=== PATIENT | female | born 1975 | race Caucasian/White ===

== ENCOUNTER 2016-09-10 09:43 | Emergency (ER) | payer MEDICAID ==
[~2016-09-10] VITALS: Wt 118.0 kg
[~2016-09-10 09:43] MED LIST: ACET500T98 PO; IBUP400T22 PO; LORA1TAB PO
[2016-09-10] MEDS ORDERED: LORAZEPAM 1 MG TAB PO ONE (11:30)
--- NOTE | 2016-09-10 11:31 | ERD ---
ER Documentation Chief Complaint Date/Time DATE: 09/10/16 TIME: 11:27 Chief Complaint MILD SOB WITH NO COUGH. FELT HR FAST LST NIGHT. TODAY NORMAL HR. NO CP HPI This patient is a 41-year-old female with history of anxiety presenting to the emergency department for palpitations which have been ongoing intermittently since last night. She normally takes Ativan for anxiety which also relieves her palpitations, but currently ran out of her prescription. She denies any dizziness, syncope, chest pain, shortness of breath, arm pain, jaw pain, diaphoresis, or other symptoms at this time. ROS All systems reviewed and are negative except as per history of present illness. Medications Home Meds Active Scripts Lorazepam* (Lorazepam*) 1 Mg Tablet, 1 MG PO Q8 Y for AGITATION/ANXIETY, #20 TAB Prov:MADELAINE COHN 03/15/16 Ibuprofen* (Motrin*) 400 Mg Tab, 400 MG PO Q6, #30 TAB 0 Refills Prov:ERICH ZABALA PA-C 11/10/15 Acetaminophen (Tylenol) 500 Mg Tab, 500 MG PO Q6, #30 TAB 0 Refills Prov:ERICH ZABALA PA-C 11/10/15 Allergies Allergies: Coded Allergies: No Known Allergy (Verified , 03/14/16) PMhx/Soc History of Surgery: Yes (C SECTION X4 ) Anesthesia Reaction: No Hx Neurological Disorder: No Hx Respiratory Disorders: No Hx Cardiac Disorders: No Hx Psychiatric Problems: No Hx Miscellaneous Medical Probl: No Hx Alcohol Use: No Hx Substance Use: No Hx Tobacco Use: No Smoking Status: Never smoker FmHx Noncontributory for chief complaint Physical Exam Vitals Vital Signs Date Time Temp Pulse Resp B/P Pulse Ox O2 Delivery O2 Flow Rate FiO2 09/10/16 09:50 98.8 72 20 137/67 99 Physical Exam INITIAL VITAL SIGNS: Reviewed by me. GENERAL: Alert and interactive. No acute distress. HEAD: Head is normocephalic and atraumatic. EYES: EOMI. No scleral icterus. No conjunctival injection. ENT: Moist mucosa. NECK: Supple. Full range of motion. RESPIRATORY: Normal respiratory effort. Clear breath sounds bilaterally. No wheezing, rales, or rhonchi. CV: Regular rate and rhythm. Normal S1 S2. No S3 or S4. No murmurs. ABDOMEN: Soft, non-distended, non-tender. No guarding. No rebound. No masses. EXTREMITIES: No deformity. SKIN: Warm and dry. NEUROLOGIC: Alert and oriented x 4. Speech is normal. Moves all extremities equally. No motor or sensory deficits noted. Results 24 hrs Current Medications Medications (Trade) Dose Ordered Sig/Kiki Route PRN Reason Start Time Stop Time Status Last Admin Dose Admin Lorazepam (Ativan) 1 mg ONCE ONCE PO 09/10/16 11:30 09/10/16 11:31 DC Procedures/MDM 41-year-old female presents secondary to complaints of heart palpitations and feeling slightly anxious. On physical examination the patient's vitals are within normal limits. Patient is 99% on room air. Patient's pulse is 72 bpm. Blood pressure is 137/67. I believe the patient's patient's symptoms are related to her history of anxiety. I have ordered an EKG looking for any signs of acute ischemia or other abnormalities. EKG: Interpreted by ED physician Rate/Rhythm: Normal sinus rhythm with rate of [address] bpm. QRS, ST, T-waves: No changes consistent w/ acute ischemia Impression: No evidence of ischemia or arrhythmia The patient's thoracic symptoms have resolved in the department. She was feeling much improved after 1 mg p.o. Ativan. Patient is stable for discharge. Patient was advised to return to the department immediately if she has any new or worsening symptoms. The patient will be given a prescription for Ativan which she may take at home only as needed for acute anxiety symptoms. Patient understands the diagnosis and plan and her questions and concerns of been addressed. Departure Diagnosis: Primary Impression: Anxiety reaction Condition: Stable Additional Instructions: Follow-up with your primary care physician within 1 week. Return to the emergency department immediately should you have any new or worsening symptoms, uncontrolled fevers, or other unexplained symptoms. Take all medications as directed. MADELAINE GARCIA PA-C Sep 10, 2016 11:31
[2016-09-10] MEDS ORDERED: LORA1TAB PO (11:34)
[2016-09-10 11:44] VITALS: BP 136/83; PULSE 66; RESP 20; TEMP 97.9
== END 2016-09-10 12:17 | disposition home or self-care (01) ==
LOC: FTE 09:43
DX: F41.1 Generalized anxiety disorder (principal)
CPT/HCPCS: Z7502; Z7610; 93005

== ENCOUNTER 2016-09-12 19:51 | Emergency (ER) | payer SELFPAY ==
[~2016-09-12] VITALS: Ht 157.5 cm; Wt 118.2 kg
[2016-09-12 20:51] VITALS: Ht 157.5 cm; Wt 118.2 kg
== END 2016-09-12 23:30 | disposition left against medical advice (07) ==
LOC: FTE 19:51
DX: Z53.21 Procedure and treatment not carried out due to patient leaving prior to being seen by health care provider (principal)

== ENCOUNTER 2016-09-23 11:11 | Emergency (ER) | payer SELFPAY ==
[~2016-09-23] VITALS: Wt 90.0 kg
[2016-09-24] MEDS ORDERED: LORA-441 PO (04:56)
== END 2016-09-23 12:51 | disposition left against medical advice (07) ==
LOC: FTE 11:11
DX: Z53.21 Procedure and treatment not carried out due to patient leaving prior to being seen by health care provider (principal)

== ENCOUNTER 2016-09-24 03:15 | Emergency (ER) | payer MEDICAID ==
[~2016-09-24] VITALS: Ht 157.5 cm; Wt 117.0 kg
[2016-09-24 03:23] VITALS: Ht 157.5 cm; Wt 117.0 kg
[2016-09-24] MEDS ORDERED: LORA-441 PO (04:56)
--- NOTE | 2016-09-24 05:10 | ERD ---
ER Documentation Chief Complaint Date/Time DATE: 09/24/16 TIME: 05:07 Chief Complaint palpitations/anxiety upon waking up last night HPI This is a 41-year-old female that presents to the ER complaining of palpitations. Patient states she was trying to go to sleep tonight when she felt something went to her body and she woke up with palpitations. Patient denies any chest pain at this time. Patient recently began hydrochlorothiazide and atorvastatin. She has had a medical history of anxiety in the past and states that her medication used to help her however it has run out. Patient denies any shortness of breath. She denies any diaphoresis. ROS 12 point review of systems was done, all negative except per HPI. Medications Home Meds Active Scripts Lorazepam* (Ativan*) 0.5 Mg Tablet, 0.5 MG PO Q8H Y for ANXIETY, #10 TAB Prov:MALORIE WILLS 09/24/16 Lorazepam* (Lorazepam*) 1 Mg Tablet, 1 MG PO Q8H Y for ANXIETY, #10 TAB Prov:MADELAINE GARCIA PA-C 09/10/16 Lorazepam* (Lorazepam*) 1 Mg Tablet, 1 MG PO Q8 Y for AGITATION/ANXIETY, #20 TAB Prov:MADELAINE COHN 03/15/16 Ibuprofen* (Motrin*) 400 Mg Tab, 400 MG PO Q6, #30 TAB 0 Refills Prov:ERICH ZABALA PA-C 11/10/15 Acetaminophen (Tylenol) 500 Mg Tab, 500 MG PO Q6, #30 TAB 0 Refills Prov:ERICH ZABALA PA-C 11/10/15 Allergies Allergies: Coded Allergies: No Known Allergy (Verified , 09/24/16) PMhx/Soc History of Surgery: Yes (C SECTION X4 ) Anesthesia Reaction: No Hx Neurological Disorder: No Hx Respiratory Disorders: No Hx Cardiac Disorders: Yes (HTN, HIGH CHOL) Hx Psychiatric Problems: No Hx Miscellaneous Medical Probl: No Hx Alcohol Use: No Hx Substance Use: No Hx Tobacco Use: No Smoking Status: Never smoker Physical Exam Vitals Vital Signs Date Time Temp Pulse Resp B/P Pulse Ox O2 Delivery O2 Flow Rate FiO2 09/24/16 03:23 97.8 86 20 131/83 98 Physical Exam GENERAL: The patient is well developed and appropriate for usual state of health , in no apparent distress. HEENT: Atraumatic. Conjunctivae are pink. Pupils equal, round, and reactive to light. Extraocular muscles are grossly intact. Bilateral tympanic membranes are clear with no evidence of erythema, effusion or dulling of the light reflex. The oropharynx is clear with no erythema or exudates. NECK: C-spine is soft and supple. There is no cervical lymphadenopathy. CHEST: Clear to auscultation bilaterally. There are no rales, wheezes or rhonchi. HEART: Regular rate and rhythm. No murmurs, clicks, rubs or gallops. ABDOMEN: Soft, nontender and nondistended. Good bowel sounds. No rebound or guarding. No gross peritonitis. No gross organomegaly or masses. No Zuniga sign or McBurney point tenderness. No pulsatile masses. BACK: No midline or flank tenderness. EXTREMITIES: Equal pulses bilaterally. There is no peripheral clubbing, cyanosis or edema. No focal swelling or erythema. Full range of motion. Grossly neurovascularly intact. NEURO: Alert and oriented. Cranial nerves II through XII are intact. Motor strength in all 4 extremities with 5/5 strength. Sensation grossly intact. Normal speech and gait. SKIN: There is no apparent rash or petechia. The skin is warm and dry. Procedures/MDM Differential diagnosis includes but is not limited to; STEMI, dissection, pneumothorax, PE, esophageal rupture, tamponade, pneumonia, pericarditis, GERD, musculoskeletal, endocarditis, anxiety. This is likely anxiety. Patient she was normally was read by 79bpm no ST elevation no t wave inversion. Patient is not complaining of chest pain or shortness of breath suspicion for acute cardiac or intrathoracic abnormality is low. Patient will be sent home with Ativan. She needs to follow-up with her primary care doctor within 1-2 days or return to ER sooner symptoms worsen. My medical decision making was shared with patient she understands and agrees with plan. Departure Diagnosis: Primary Impression: Anxiety Condition: Stable Patient Instructions: Anxiety Reaction Additional Instructions: Llame al doctor MAANA y quintin mayuri JORGE PARA DENTRO DE 1-2 BARRIOS.Dgale a la secretaria que nosotros le instruimos hacer esta jorge.Avise o llame si almanzar condicin se empeora antes de la jorge. Regresa aqui si peor o no mejor. MALORIE WILLS Sep 24, 2016 05:10
[2016-09-24] MEDS ORDERED: LORAZEPAM 1 MG TAB PO ONE (05:30)
== END 2016-09-24 05:41 | disposition home or self-care (01) ==
LOC: FTE 03:15
DX: F41.9 Anxiety disorder, unspecified (principal); I10 Essential (primary) hypertension
CPT/HCPCS: 93005; 99283

== ENCOUNTER 2017-01-15 22:10 | Emergency (ER) | payer MEDICAID ==
[~2017-01-15] VITALS: Ht 157.5 cm; Wt 121.5 kg
[~2017-01-15 22:10] MED LIST changes: +LORA-441 PO
[2017-01-15 22:14] VITALS: Ht 157.5 cm; Wt 121.5 kg
--- NOTE | 2017-01-15 23:48 | ERD ---
ER Documentation Chief Complaint Date/Time DATE: 01/15/17 TIME: 23:41 Chief Complaint LT HEAD/EAR PAIN STARTING TODAY. NO FEVER. HPI 41-year-old female presents to emergency department for complaints of left ear pain radiating around the left ear and the left side of the head started today. Patient was diagnosed of an ear infection 2 months ago, described it to be the same pain. Patient stated that she was diagnosed to have outer ear infection before. Patient denies any fever or chills. Patient denies any foreign body in there. Patient denies any trauma there. Patient denies any or discharge. Patient denies any problems with hearing. Patient described the pain as throbbing pain, 6/10 scale, not better or worse with anything. ROS All systems reviewed and are negative except as per history of present illness. Medications Home Meds Active Scripts Lorazepam* (Ativan*) 0.5 Mg Tablet, 0.5 MG PO Q8H Y for ANXIETY, #10 TAB Prov:MALORIE WILLS 09/24/16 Lorazepam* (Lorazepam*) 1 Mg Tablet, 1 MG PO Q8H Y for ANXIETY, #10 TAB Prov:MADELAINE GARCIA PA-C 09/10/16 Lorazepam* (Lorazepam*) 1 Mg Tablet, 1 MG PO Q8 Y for AGITATION/ANXIETY, #20 TAB Prov:MADELAINE COHN 03/15/16 Ibuprofen* (Motrin*) 400 Mg Tab, 400 MG PO Q6, #30 TAB 0 Refills Prov:ERICH ZABALA PA-C 11/10/15 Acetaminophen (Tylenol) 500 Mg Tab, 500 MG PO Q6, #30 TAB 0 Refills Prov:ERICH ZABALA PA-C 11/10/15 Allergies Allergies: Coded Allergies: No Known Allergy (Verified , 09/24/16) PMhx/Soc History of Surgery: Yes (C SECTION X4 ) Anesthesia Reaction: No Hx Neurological Disorder: No Hx Respiratory Disorders: No Hx Cardiac Disorders: Yes (HTN, HIGH CHOL) Hx Psychiatric Problems: No Hx Miscellaneous Medical Probl: No Hx Alcohol Use: No Hx Substance Use: No Hx Tobacco Use: No Smoking Status: Never smoker FmHx Family History: No coronary disease, No diabetes, No other Physical Exam Vitals Vital Signs Date Time Temp Pulse Resp B/P Pulse Ox O2 Delivery O2 Flow Rate FiO2 6/4/17 22:14 97.3 86 18 134/77 99 Physical Exam GENERAL: The patient is well developed and appropriate for usual state of health, in no apparent distress. HEENT: Atraumatic. Ears: Normal tympanic membrane, no erythema or bulging. Left ear canal swelling. No ear discharge. Right ear canal noted to be normal. Nose: normal nasal turbinates, no erythema or swelling. Normal nasal discharge. Throat : oropharynx clear. No tonsillar swelling or tonsillar exudates. No lymphadenopathy. CHEST: Clear to auscultation bilaterally. There are no rales, wheezes or rhonchi. HEART: Regular rate and rhythm. No murmurs, clicks, rubs or gallops. No S3 or S4. ABDOMEN: Soft, nontender and nondistended. Good bowel sounds. No rebound or guarding. No gross peritonitis. No gross organomegaly or masses. No Zuniga sign or McBurney point tenderness. BACK: No midline or flank tenderness. EXTREMITIES: Equal pulses bilaterally. There is no peripheral clubbing, cyanosis or edema. No focal swelling or erythema. Full range of motion. Grossly neurovascularly intact. NEURO: Alert and oriented. Cranial nerves 2-12 intact. Motor strength in all 4 extremities with 5/5 strength. Sensation grossly intact. Normal speech and gait. SKIN: There is no apparent rash or petechia. The skin is warm and dry. HEMATOLOGIC AND LYMPHATIC: There is no evidence of excessive bruising or lymphedema. No gross cervical, axillary, or inguinal lymphadenopathy. Results 24 hrs Current Medications Medications (Trade) Dose Ordered Sig/Kiki Route PRN Reason Start Time Stop Time Status Last Admin Dose Admin Acetaminophen/ Hydrocodone Bitart ([place] (5/325)) 1 tab ONCE ONCE PO 01/16/17 02:30 01/16/17 02:31 UNV Patient was given medication for pain here in emergency department, after treatment, patient verbalized feeling much better. Patient's pain is improved. PROCEDURE: CT Brain without contrast. CLINICAL INDICATION: Headache. TECHNIQUE: Serial axial computed tomographic images of the brain was performed on a CT scanner from the skull base through the vertex without contrast. Sagittal and coronal reconstruction images were produced. Exam CTDlvol = 45 mGy and DLP = 720 mGy-cm. One of the following 3 dose reduction techniques were used: Automated exposure control; adjustment of the mA and/or kV according to patient size; or use of iterative reconstruction technique. COMPARISON: None available FINDINGS: The ventricles and sulci are normal in size and configuration. There is no midline shift. There are no focal parenchymal abnormalities. There is no acute stroke. No acute intracranial hemorrhage or abnormal extra-axial fluid collection. No fracture identified. Visualized paranasal sinuses are clear. IMPRESSION: 1. No acute intracranial abnormality. RPTAT: HMVK .Aamir Dyson MD, MD Date Time Electronically viewed and signed by .Aamir Dyson MD, MD on 01/16/2017 02:09 .K/ CC: JANE NICHOLE TRANSMISSION SPECIALIST Procedures/MDM Medical Decision Making: Patient's headache nonspecific, most likely tension headache. Patient's left ear pain insistent with otitis externa, no symptoms of otitis media or mastoiditis. No foreign body. No fever. No tumors noted. There is low suspicion for neurological emergencies at this time since patients neurologic exam is normal. Patient did not have any altered level consciousness , vomiting, changes in balance or memory after incident. Patients CT scan of the head does not show any neurological emergencies at this time. Patient was given Aurora for severe pain, Ciprodex ibuprofen for pain. Dispostion: Home. Stable Departure Diagnosis: Primary Impression: Headache Headache type: tension-type Headache chronicity pattern: acute headache Intractability: not intractable Qualified Code: G44.209 - Acute non intractable tension-type headache Additional Impression: Otitis externa Otitis externa type: unspecified type Laterality: left Chronicity: acute Qualified Code: H60.502 - Acute otitis externa of left ear, unspecified type Condition: Stable Patient Instructions: External Ear Infection (Adult), Self-Care for Headaches JANE NICHOLE NP Jan 15, 2017 23:48
--- NOTE | 2017-01-16 02:10 | RADRPT ---
PROCEDURE: CT Brain without contrast. CLINICAL INDICATION: Headache. TECHNIQUE: Serial axial computed tomographic images of the brain was performed on a CT scanner fro m the skull base through the vertex without contrast. Sagittal and coronal reconstruction images wer e produced. Exam CTDlvol = 45 mGy and DLP = 720 mGy-cm. One of the following 3 dose reduction tech niques were used: Automated exposure control; adjustment of the mA and/or kV according to patient si ze; or use of iterative reconstruction technique. COMPARISON: None available FINDINGS: The ventricles and sulci are normal in size and configuration. There is no midline shift. There ar e no focal parenchymal abnormalities. There is no acute stroke. No acute intracranial hemorrhage o r abnormal extra-axial fluid collection. No fracture identified. Visualized paranasal sinuses are clear. IMPRESSION: 1. No acute intracranial abnormality. RPTAT: HMVK .Aamir Dyson MD, Date Time Electronically viewed and signed by .Aamir Dyson MD, on 01/16/2017 02:09 .K/
[2017-01-16] MEDS ORDERED: CIPR7.5D4 LEFT EAR (02:23)
[2017-01-16] MEDS ORDERED: HYDR-906 PO (02:23)
[2017-01-16] MEDS ORDERED: IBUP-1542 PO (02:23)
[2017-01-16] MEDS ORDERED: HYDROCODONE/APAP (5/325) TAB PO ONE (02:30)
[2017-01-16 02:42] VITALS: BP 134/76; PULSE 75; RESP 18; TEMP 97.5
== END 2017-01-16 02:44 | disposition home or self-care (01) ==
LOC: FTE 22:10
DX: G44.209 Tension-type headache, unspecified, not intractable (principal); H60.502 Unspecified acute noninfective otitis externa, left ear; I10 Essential (primary) hypertension
CPT/HCPCS: 70450; Z7502; Z7610

== ENCOUNTER 2017-02-05 12:47 | Emergency (ER) | payer MEDICAID ==
[~2017-02-05] VITALS: Wt 89.0 kg
[~2017-02-05 12:47] MED LIST changes: +CIPR7.5D4 LEFT EAR; +HYDR-906 PO; +IBUP-1542 PO
[2017-02-05] MEDS ORDERED: KETOROLAC 30 MG INJ IM STA (13:45)
[2017-02-05 14:07] LABS: URINE BLOOD (Dip) POC 2+ (NEGATIVE)
--- NOTE | 2017-02-05 14:33 | ERD ---
ER Documentation Chief Complaint Date/Time DATE: 02/05/17 TIME: 14:33 Chief Complaint LOWER BACK PAIN X 1 WEEK HPI This is a 41-year-old female who presents to the emergency department today complaining of low back pain for the past week. States that she does have some pain with urination that it "smells strong". 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 Denies any fall. Denies any fevers or chills . ROS All systems reviewed and are negative except as per history of present illness. Medications Home Meds Active Scripts Naproxen* (Naprosyn*) 500 Mg Tablet, 500 MG PO BID Y for PAIN AND/OR INFLAMMATION, #30 TAB Prov:DICK QUINTERO PA-C 02/05/17 Tramadol HCl (Tramadol HCl) 50 Mg Tablet, 50 MG PO Q4 Y for PAIN, #20 TAB Prov:DICK QUINTERO PA-C 02/05/17 Cephalexin* (Keflex*) 500 Mg Capsule, 500 MG PO QID for 7 Days, CAP Prov:DICK QUINTERO PA-C 02/05/17 Ciprofloxacin Hcl/Dexameth (Ciprodex Otic Suspension) 7.5 Ml Drops.susp, 4 DROP LEFT EAR BID for 7 Days, EA Prov:JANE NICHOLE NP 01/16/17 Hydrocodone/Acetaminophen ([place] 5-325 Tablet) 1 Each Tablet, 1 TAB PO Q6H for SEVERE PAIN LEVEL 7-10, #20 TAB Prov:JANE NICHOLE NP 01/16/17 Ibuprofen* (Motrin*) 600 Mg Tab, 600 MG PO Q6H Y for PAIN AND OR ELEVATED TEMP, #30 TAB Prov:JANE NICHOLE [employer]ISION [employer]FT [employer]URE ASSEMBLER 01/16/17 Lorazepam* (Ativan*) 0.5 Mg Tablet, 0.5 MG PO Q8H Y for ANXIETY, #10 TAB Prov:MALORIE WILLS 09/24/16 Lorazepam* (Lorazepam*) 1 Mg Tablet, 1 MG PO Q8H Y for ANXIETY, #10 TAB Prov:MADELAINE GARCIA PA-C 09/10/16 Lorazepam* (Lorazepam*) 1 Mg Tablet, 1 MG PO Q8 Y for AGITATION/ANXIETY, #20 TAB Prov:MADELAINE COHN 03/15/16 Ibuprofen* (Motrin*) 400 Mg Tab, 400 MG PO Q6, #30 TAB 0 Refills Prov:ERICH ZABALA PA-C 11/10/15 Acetaminophen (Tylenol) 500 Mg Tab, 500 MG PO Q6, #30 TAB 0 Refills Prov:ERICH ZABALA PA-C 11/10/15 Allergies Allergies: Coded Allergies: No Known Allergy (Verified , 02/05/17) PMhx/Soc History of Surgery: Yes (C SECTION X4 ) Anesthesia Reaction: No Hx Neurological Disorder: No Hx Respiratory Disorders: No Hx Cardiac Disorders: Yes (HTN, HIGH CHOL) Hx Psychiatric Problems: No Hx Miscellaneous Medical Probl: No Hx Alcohol Use: No Hx Substance Use: No Hx Tobacco Use: No Smoking Status: Never smoker Physical Exam Vitals Vital Signs Date Time Temp Pulse Resp B/P Pulse Ox O2 Delivery O2 Flow Rate FiO2 02/05/17 12:50 99.1 95 18 138/80 99 Physical Exam Const: Obese, no acute distress Head: Atraumatic Eyes: Normal Conjunctiva ENT: Normal External Ears, Nose and Mouth. Neck: Full range of motion..~ No meningismus. Resp: Clear to auscultation bilaterally Cardio: Regular rate and rhythm, no murmurs Abd: Soft, non tender, non distended. Normal bowel sounds Skin: No petechiae or rashes Back: No midline tenderness. Right-sided paraspinal tenderness. Full active range of motion. Negative straight leg raise. No CVA tenderness. Pulses 2+. Distal neurovascularly intact Ext: No cyanosis, or edema Neur: Awake and alert Psych: Normal Mood and Affect Results 24 hrs Laboratory Tests Test 02/05/17 14:11 Bedside Urine pH (LAB) 5.5 Bedside Urine Protein (LAB) Trace Bedside Urine Glucose (UA) Negative Bedside Urine Ketones (LAB) Negative Bedside Urine Blood 2+ Bedside Urine Nitrite (LAB) Positive Bedside Urine Leukocyte Esterase (L Trace Current Medications Medications (Trade) Dose Ordered Sig/Kiki Route PRN Reason Start Time Stop Time Status Last Admin Dose Admin Ketorolac Tromethamine (Toradol) 30 mg ONCE STAT IM 02/05/17 13:45 02/05/17 13:46 DC 02/05/17 14:13 Procedures/MDM This 41-year-old female presents emergency department today complaining of right -sided back pain for the past week. Patient had indicated that she does do some heavy lifting with work however she had no midline tenderness and I did not feel that she required imaging at this time. I did obtain a UA. UA shows trace leukocyte esterase and 2+ blood and positive nitrites. test is negative. Patient symptoms at this time is consistent with urinary tract infection however she may also have lumbar strain as well as she has indicated that she has pain with picking up heavy items at her job. Other differentials to consider are kidney stones given the hematuria. Patient is afebrile and otherwise well-appearing. She has no nausea or vomiting. She has no CVA tenderness and I did not feel that she requires laboratory workup at this time. Low suspicion for pyelonephritis,, septic stone. Patient was given Toradol here in the emergency department. She will be given a prescription for tramadol, Keflex, Tylenol for home. At this time the patient is stable for discharge and outpatient management. Patient should follow up with their PCP in the next 1-2 days. They may return to the emergency department sooner for any persistent or worsening of symptoms. Patient understood and agreed with the plan. Departure Diagnosis: Primary Impression: UTI (urinary tract infection) Urinary tract infection type: site unspecified Hematuria presence: with hematuria Qualified Code: N39.0 - Urinary tract infection with hematuria, site unspecified Additional Impression: Back pain Back pain location: low back pain Chronicity: acute Back pain laterality: right Sciatica presence: without sciatica Qualified Code: M54.5 - Acute right-sided low back pain without sciatica Condition: DICK Pierson PA-C Feb 05, 2017 14:33
[2017-02-05] MEDS ORDERED: CEPH-443 PO (14:38)
[2017-02-05] MEDS ORDERED: NAPR-260 PO (14:39)
[2017-02-05] MEDS ORDERED: TRAM50TA2 PO (14:39)
== END 2017-02-05 14:46 | disposition home or self-care (01) ==
LOC: FTE 12:47
DX: N39.0 Urinary tract infection, site not specified (principal); I10 Essential (primary) hypertension
CPT/HCPCS: 81003; 96372; J1885; Z7502

== ENCOUNTER 2017-02-12 16:41 | Emergency (ER) | payer MEDICAID, OTHER ==
[~2017-02-12] VITALS: Ht 157.5 cm; Wt 120.0 kg
[~2017-02-12 16:41] MED LIST changes: +CEPH-443 PO; +NAPR-260 PO; +TRAM50TA2 PO
[2017-02-12 16:44] VITALS: Ht 157.5 cm; Wt 120.0 kg
[2017-02-12] MEDS ORDERED: IBUPROFEN 600 MG TAB PO ONE (17:30)
--- NOTE | 2017-02-12 17:33 | RADRPT ---
PROCEDURE: XR right first digit. CLINICAL INDICATION: Trauma. Pain. TECHNIQUE: Three views of the right first digit are available for review. COMPARISON: None available FINDINGS: There is a subtle irregular lucency at the proximal metadiaphysis of the distal phalanx of the first digit suspicious for a nondisplaced fracture. There is no dislocation. Bone mineralization is wit hin normal limits. Soft tissues are unremarkable. IMPRESSION: Subtle nondisplaced fracture of proximal metadiaphysis of the distal phalanx of the first digit. RPTAT: HMVK .Aamir Dyson MD, MD Date Time Electronically viewed and signed by .Aamir Dyson MD, MD on 02/12/2017 17:33 .K/
--- NOTE | 2017-02-12 17:37 | RADRPT ---
PROCEDURE: XR Wrist. CLINICAL INDICATION: Trauma. Pain. TECHNIQUE: AP, lateral and oblique views of the right wrist were performed. COMPARISON: No prior studies are available for comparison. FINDINGS: Subtle nondisplaced fracture of the proximal metadiaphysis of the distal phalanx of the first digit is present. There is no fracture. Joint relationships are maintained. Bone mineralization is with in normal limits. Soft tissues are unremarkable. IMPRESSION: Subtle nondisplaced fracture of the proximal metadiaphysis of the distal phalanx of the first digit. No other fracture. RPTAT: HMVK .Aamir Dyson MD, Date Time Electronically viewed and signed by .Aamir Dyson MD, MD on 02/12/2017 17:37 .K/
[2017-02-12] MEDS ORDERED: IBUP-1542 PO (18:03)
--- NOTE | 2017-02-12 18:15 | ERD ---
ER Documentation Chief Complaint Date/Time DATE: 02/12/17 TIME: 18:14 Chief Complaint RIGHT THUMB PAIN S/P FALL TODAY SKATING HPI This 41-year-old female presents with right thumb pain after falling today while skating. Pain is primarily around her PIP joint of her right thumb. She has mild pain in the right wrist as well. She has no restricted range of motion weakness or bleeding or lacerations. ROS All systems reviewed and are negative except as per history of present illness. Medications Home Meds Active Scripts Ibuprofen* (Motrin*) 600 Mg Tab, 600 MG PO Q6, #15 TAB Prov:WHIT SALCEDO MD 02/12/17 Naproxen* (Naprosyn*) 500 Mg Tablet, 500 MG PO BID Y for PAIN AND/OR INFLAMMATION, #30 TAB Prov:DICK QUINTERO PA-C 02/05/17 Tramadol HCl (Tramadol HCl) 50 Mg Tablet, 50 MG PO Q4 Y for PAIN, #20 TAB Prov:DICK QUINTERO PA-C 02/05/17 Cephalexin* (Keflex*) 500 Mg Capsule, 500 MG PO QID for 7 Days, CAP Prov:DICK QUINTERO PA-C 02/05/17 Ciprofloxacin Hcl/Dexameth (Ciprodex Otic Suspension) 7.5 Ml Drops.susp, 4 DROP LEFT EAR BID for 7 Days, EA Prov:JANE NICHOLE NP 01/16/17 Hydrocodone/Acetaminophen ([place] 5-325 Tablet) 1 Each Tablet, 1 TAB PO Q6H for SEVERE PAIN LEVEL 7-10, #20 TAB Prov:JANE NICHOLE NP 01/16/17 Ibuprofen* (Motrin*) 600 Mg Tab, 600 MG PO Q6H Y for PAIN AND OR ELEVATED TEMP, #30 TAB Prov:JANE NICHOLE NP 01/16/17 Lorazepam* (Ativan*) 0.5 Mg Tablet, 0.5 MG PO Q8H Y for ANXIETY, #10 TAB Prov:MALORIE WILLS 09/24/16 Lorazepam* (Lorazepam*) 1 Mg Tablet, 1 MG PO Q8H Y for ANXIETY, #10 TAB Prov:MADELAINE GARCIA PA-C 09/10/16 Lorazepam* (Lorazepam*) 1 Mg Tablet, 1 MG PO Q8 Y for AGITATION/ANXIETY, #20 TAB Prov:MADELAINE COHN 03/15/16 Ibuprofen* (Motrin*) 400 Mg Tab, 400 MG PO Q6, #30 TAB 0 Refills Prov:ERICH ZABALA PA-C 11/10/15 Acetaminophen (Tylenol) 500 Mg Tab, 500 MG PO Q6, #30 TAB 0 Refills Prov:ERICH ZABALA PA-C 11/10/15 Allergies Allergies: Coded Allergies: No Known Allergy (Verified , 02/12/17) PMhx/Soc History of Surgery: Yes (C SECTION X4 ) Anesthesia Reaction: No Hx Neurological Disorder: No Hx Respiratory Disorders: No Hx Cardiac Disorders: Yes (HTN, HIGH CHOL) Hx Psychiatric Problems: No Hx Miscellaneous Medical Probl: No Hx Alcohol Use: No Hx Substance Use: No Hx Tobacco Use: No Physical Exam Vitals Vital Signs Date Time Temp Pulse Resp B/P Pulse Ox O2 Delivery O2 Flow Rate FiO2 02/12/17 16:44 98.0 89 18 143/91 97 Physical Exam Const: [] Alert, not ill-appearing per Head: Atraumatic Eyes: Normal Conjunctiva ENT: Normal External Ears, Nose and Mouth. Neck: Full range of motion..~ No meningismus. Resp: Clear to auscultation bilaterally Cardio: Regular rate and rhythm, no murmurs Abd: Soft, non tender, non distended. Normal bowel sounds Skin: No petechiae or rashes Back: No midline or flank tenderness Ext: No cyanosis, or edema. Mild tenderness around the PIP joint rectum. Minimal snuffbox tenderness. There is no effusion, deformities, restricted range of motion weakness or erythema. Neur: Awake and alert Psych: Normal Mood and Affect Results 24 hrs Current Medications Medications (Trade) Dose Ordered Sig/Kiki Route PRN Reason Start Time Stop Time Status Last Admin Dose Admin Ibuprofen (Motrin) 600 mg ONCE ONCE PO 02/12/17 17:30 02/12/17 17:31 DC 02/12/17 17:37 Procedures/MDM X-ray right wrist 3V Interpreted by me: Scaphoid: [Normal] Bones: There is a subtle fracture through the diaphysis of the proximal distal phalange of the right thumb. Joints: [No dislocation] Foreign body: [None]. Impression-subtle nondisplaced fracture of the distal phalange of the right thumb. X-ray right wrist 3V Interpreted by me: Scaphoid: [Normal] Bones: [No fracture] Joints: [No dislocation] Foreign body: [None]. Impression have normal right wrist x-ray She was placed in a right thumb metal splint. Patient is nervous intact after splint. Patient signs and symptoms of a nondisplaced right thumb fracture without evidence of infection, deficits, ischemia. She will discharged home with orthopedic and primary care follow-up. The patient was stable with no new complaints during the ER course. Clinically, there is no current evidence to suggest meningitis, sepsis, acute abdomen, pneumonia, acute coronary syndrome, pulmonary embolism, or any other emergent condition appearing to require further evaluation or hospitalization. The patient should certainly return for any new or worsening symptoms per the aftercare instructions. They should otherwise follow-up with her primary care doctor for reevaluation this week. Departure Diagnosis: Primary Impression: Finger fracture, right Encounter type: initial encounter Fracture type: closed Qualified Code: S62.609A - Finger fracture, right, closed, initial encounter Condition: Stable Patient Instructions: Fracture, Finger (Closed) Referrals: ELLEN CANTU MD [facility] Additional Instructions: Va al almanzar doctor/ specialista para mas evaluacon en el proximo semana. posiblemente necesita autorizado de almanzar doctor primario para specialista. Regresa para fiebre, o mas o nueva simptomas. WHIT SALCEDO MD Feb 12, 2017 18:15
== END 2017-02-12 19:04 | disposition home or self-care (01) ==
LOC: FTE 16:41
DX: S62.524A Nondisplaced fracture of distal phalanx of right thumb, initial encounter for closed fracture (principal); I10 Essential (primary) hypertension; V00.131A Fall from skateboard, initial encounter; Y92.9 Unspecified place or not applicable
CPT/HCPCS: 29130; 73110; 73140; Z7610

== ENCOUNTER 2018-01-09 07:44 | Emergency (ER) | END 2018-01-09 08:38 | disposition home or self-care (01) ==